=== PATIENT | male | born 1955 | race Caucasian/White ===

== ENCOUNTER 2020-11-08 04:51 | Observation (INO) | payer MEDICARE, OTHER ==
[2020-11-08 06:03] LABS: #Basophils 0.1 thou/uL (0.0-0.2); #Eosinphils 0.3 thou/uL (0.0-0.7); #Lymphocytes 1.8 thou/uL (1.20-3.40); #Monocytes 0.7 thou/uL (0.11-0.59); #Neutrophils 5.9 thou/uL (1.40-6.50); %Basophils 0.9 % (0.0-1.0); %Eosinophils 3.1 % (0.0-10.0); %Lymphocytes 20.5 % (21.0-51.0); %Monocytes 8.1 % (0.0-10.0); %Neutrophils 67.5 % (42.0-75.0); Hemoglobin 15.1 g/dL (14.0-18.0); Mean Corpuscular Hemoglobin 33.9 pg (27.0-31.0); Mean Platelet Volume 7.2 fL (7.4-10.4); Platelet Count 201 thou/uL (130-400); RBC Distribution Width 11.7 % (11.5-14.5); Red Blood Cell (RBC) Count 4.47 mill/uL (4.70-6.10); White Blood Cell (WBC) Count 8.8 thou/uL (4.8-10.8)
[2020-11-08 06:21] LABS: Anion Gap 12 mmol/L (10-20); BUN (Urea Nitrogen) 19 mg/dL (8.4-25.7); Calc. Creatinine Clearance 0 mL/min (70-130); Carbon Dioxide 27 mmol/L (23-31); Chloride 105 mmol/L (98-107); Glucose 99 mg/dL (80-115); Potassium 4.9 mmol/L (3.5-5.1); Sodium 139 mmol/L (136-145)
[2020-11-08] MEDS ORDERED: GoLYTELY 4,000 ml Bottle PO SCH (06:30)
[2020-11-08] MEDS ORDERED: Ondansetron ODT 4 MG TAB SL PRN (09:00)
[2020-11-08] MEDS ORDERED: Ondansetron PF 4 MG/2 ML Vial IVP PRN (09:00)
[2020-11-08] MEDS ORDERED: Acetaminophen 650 MG Suppository PR PRN (09:39)
[2020-11-08] MEDS ORDERED: Acetaminophen 325 MG TAB PO PRN (09:39)
[2020-11-08 10:06] LABS: Hemoglobin 14.7 g/dL (14.0-18.0)
[2020-11-08 10:21] LABS: Lactic Acid 0.8 mmol/L (0.5-2.2)
[2020-11-08] MEDS ORDERED: ePHEDrine 50 MG/ML VIAL ONE (10:30)
[2020-11-08] MEDS ORDERED: PROPOFOL 200 MG/20 ML VIAL ONE (10:30)
[2020-11-08] MEDS ORDERED: EPINEPHrine 1 MG/10 ML Abboject SYRINGE ONE (10:30)
--- NOTE | 2020-11-08 11:11 | CON ---
DATE OF CONSULTATION: 11/08/2020 REQUESTING PHYSICIAN: Maxx Bashir MD REASON FOR CONSULTATION: Postpolypectomy bleeding. HISTORY OF PRESENT ILLNESS: Ha Franks is a very pleasant 65-year-old man, who was seen by my colleague, Dr. Alcantara, two days ago for first routine screening colonoscopy. He had 21 sessile polyps visualized and they were all removed with snare polypectomy. These were scattered throughout the colon, 10 of them were removed with hot snare, and the other 11 were removed with cold snare. The patient did very well immediately following the procedure. He had a good day yesterday, but about 11 o'clock last night, he passed a large bowel movement, which was all bright red blood. He went back to sleep, but awoke again about 3:30 and passed another large bloody bowel movement, which was darker red. He never had any dizziness or lightheadedness or abdominal pain with this. There were no other symptoms, but he presented to the emergency department and was admitted. Admission hemoglobin is actually normal at 15.1. He has been hemodynamically stable. Bowel preparation was started. He has had several more bowel movements with this, having got down about half the prep so far. It is still very bloody. Again, he has no other complaints. REVIEW OF SYSTEMS: Full review of systems including constitutional, head, eyes, ears, nose, throat, GI, , cardiovascular, respiratory, musculoskeletal, and neurologic systems is negative except as noted in the HPI. PAST MEDICAL HISTORY: 1. Tobacco abuse, ongoing. 2. COPD. 3. Asthma. 4. History of colon polyps. ALLERGIES: HORSE SERUM. OUTPATIENT MEDICATIONS: Symbicort inhaler. SOCIAL HISTORY: He smokes about a pack of cigarettes per day. He lives at home with his . Alcohol use is social. No drug use. FAMILY HISTORY: Noncontributory. PHYSICAL EXAMINATION: VITAL SIGNS: Temperature 97.6, pulse 79, blood pressure 134/97, and 98% oxygen saturation on room air. GENERAL: A 65-year-old man, lying in bed comfortably, in no distress. SKIN: No jaundice. No rashes were palpable. EYES: No scleral icterus. Extraocular movements intact. ENT: Mucous membranes moist. No oral lesions. LYMPH: No submandibular or supraclavicular lymphadenopathy. Thyroid nontender to palpation. HEART: Regular rate and rhythm. LUNGS: Clear to auscultation bilaterally. No respiratory distress. ABDOMEN: Nondistended. Bowel sounds present. Soft and nontender to palpation. EXTREMITIES: No peripheral edema. VESSELS: Radial pulses 2+ bilaterally. NEURO: Cranial nerves 2 through 12 intact bilaterally. No focal deficits. LABORATORY STUDIES: WBC 8.8, hemoglobin 15.1, platelets 201, and MCV 103.0. Sodium 139, potassium 4.9, BUN only 19, creatinine 1.51, glucose 99, and calcium 9.0. ASSESSMENT AND PLAN: Postpolypectomy hemorrhage. I discussed with the patient that he is undoubtedly bleeding from one of the 10 polypectomy sites that required hot snare polypectomy. Reassuringly, he is hemodynamically stable with normal admission hemoglobin and has no other symptoms. I advised him to please try to finish the bowel preparation by noon today and we are going to plan for colonoscopy this afternoon to try to identify the bleeding site and apply endoscopic therapy if necessary. Depending on findings, if the bleeding is resolved and he is feeling well, he could potentially be discharged from the hospital this evening, but will see what the colonoscopy shows. Thank you for the consultation. Please call anytime with questions or concerns. Job ID: [id number]
[2020-11-08] MEDS: Dextrose 5 % And 0.9 % NaCl 1,000 ML IV SCH ×2 (11:24→19:15)
--- NOTE | 2020-11-08 11:33 | PDOC.HHP ---
Hospitalist HPI - History of Present Illness History of Present Illness: ADMISSION DATE: 11/08/2020 TIME OF ASSESSMENT: 0900 PRIMARY CARE PHYSICIAN: None CHIEF COMPLAINT: ADMISSION DATE: Bloody stools since yesterday evening HPI: This is a 65-year-old gentleman who came into the emergency department early hours this morning after having multiple bloody stools. He has had a total of 4 large bloody stools since 11 PM last night. The patient is status post a colonoscopy which was done on Thursday during which he had approximately 20 polyps removed. The procedure was done by Dr. Reyes and it was apparently his first screening colonoscopy. He did well once he went home and resumed diet w ithout any difficulty. Denies experiencing any nausea, vomiting, or abdominal pain. States that yesterday he was a lot more active around his home and relatively speaking he was less active than he normally is. He feels he may have "pulled something" that caused him to start bleeding. Again he denies any discomfort. Has not experienced any lightheadedness or dizziness. Denies any shortness of breath or chest pain. At present he is resting comfortably and is without any complaints. Of note patient denies having any issues with his bowels at baseline and has never experienced GI bleeding in the past. He endorses chronic NSAID use for musculoskeletal pain (he works in construction) and often alternates between Aspirin, Ibuprofen or Naproxen to treat his joint pain. ROS: All other review systems apart from what is mentioned above are negative. ED COURSE: In the emergency department he was noted to be normotensive with a blood pressure of 124/80 and his heart rate was between the 80s and 90s. He had laboratory studies done that showed a white cell count of 8.8, hemoglobin was 15.1, hematocrit 45.9 and platelets 101. BUN 19 and creatinine was elevated at 1.51. GFR 46. He was started on IV fluids in the emergency department. Case was discussed with Dr. Alcantara who plans to take the patient for repeat colonoscopy today. Patient was started on a bowel prep. PAST MEDICAL HISTORY: COPD PAST SURGICAL HISTORY: Status post colonoscopy with approximately 20 polyps removed. SOCIAL HISTORY: Patient smokes a pack and a half of cigarettes a day. Reports occasional alcohol consumption which ranges from 3-10 beers a week. Denies daily alcohol intake and states he sometimes goes several days without drinking at all and does not experience any alcohol withdrawal symptoms. No illicit drug use. FAMILY HISTORY: Noncontributory ALLERGIES: Horse serum CURRENT MEDICATIONS: 1. Symbicort 2. Occasional NSAIDs prn for joint pain (Aspirin, Naproxen and Ibuprofen) Hospitalist ROS - Medication Medications: Active Medications Generic Name Dose Route Start Last Admin Trade Name Oneilq PRN Reason Stop Dose Admin Dextrose/Sodium Chloride 1,000 mls @ 100 mls/hr 11/08/20 09:00 11/08/20 11:24 D5 0.9% Ns IV 11/08/20 19:00 1,000 mls .Q10H ANGEL Administration - Exam General Appearance: NAD, awake alert General - other findings: VS: Temp 97.6, HR 79, RR 16, O2 sat 90% on room air, BP 134/97. Eye: PERRL, anicteric sclera ENT: normocephalic atraumatic, no oropharyngeal lesions Neck: supple, no lymphadenopathy Heart: RRR, normal peripheral pulses Respiratory: CTAB, no wheezes, no rales, no ronchi, normal chest expansion Gastrointestinal: soft, non-tender, non-distended, normal bowel sounds Extremities: no edema Skin: normal turgor, no lesions, no rashes Neurological: cranial nerve grossly intact, normal sensation to touch, no weakness Musculoskeletal: normal tone, normal strength, no muscle wasting, generalized weakness Psychiatric: normal affect, normal behavior, A&O x 3, oriented to person Hospitalist Results - Labs Result Diagrams: 11/08/20 09:57 11/08/20 05:52 Lab results: WBC 8.8 thou/uL (4.8-10.8) 11/08/20 05:52 Hgb 14.7 g/dL (14.0-18.0) 11/08/20 09:57 Hct 44.3 % (42.0-52.0) 11/08/20 09:57 MCV 103.0 fL (78.0-98.0) H 11/08/20 05:52 Plt Count 201 thou/uL (130-400) 11/08/20 05:52 Neutrophils % 67.5 % (42.0-75.0) 11/08/20 05:52 Sodium 139 mmol/L (136-145) 11/08/20 05:52 Potassium 4.9 mmol/L (3.5-5.1) 11/08/20 05:52 Chloride 105 mmol/L (98-107) 11/08/20 05:52 Carbon Dioxide 27 mmol/L (23-31) 11/08/20 05:52 BUN 19 mg/dL (8.4-25.7) 11/08/20 05:52 Creatinine 1.51 mg/dL (0.7-1.3) H 11/08/20 05:52 Glucose 99 mg/dL (80-115) 11/08/20 05:52 Lactic Acid 0.8 mmol/L (0.5-2.2) 11/08/20 09:57 Calcium 9.0 mg/dL (7.8-10.44) 11/08/20 05:52 Hospitalist H&P A/P - Problem (1) GI bleed Code(s): K92.2 - GASTROINTESTINAL HEMORRHAGE, UNSPECIFIED Status: Acute (2) BECCA (acute kidney injury) Code(s): N17.9 - ACUTE KIDNEY FAILURE, UNSPECIFIED Status: Acute (3) Status post colonoscopy with polypectomy Status: Acute (4) COPD (chronic obstructive pulmonary disease) Status: Chronic - Plan Plan: Will repeat H/H Continue bowel prep for repeat colonoscopy Check Mg+ Continue IV fluids Monitor renal function Monitor BP Resume symbicort Advice given to minimize use of NSAIDs and try Tylenol instead GI prophylaxis: Protonix 40 mg IV daily DVT prophylaxis: Mechanical SCDs Educate: Tobacco cessation Case discussed with attending who agrees with plan as above.
[2020-11-08 12:58] LABS: SARS-CoV-2 MS2 Positive; SARS-CoV-2 N Gene Negative; SARS-CoV-2 S Gene Negative; SARS-CoV-2 by NAA Not Detected (NotDetected); SARS-CoV-2 orf1ab Negative
[2020-11-08 14:13] VITALS: BMI 31.9
--- NOTE | 2020-11-08 16:26 | OP ---
DATE OF PROCEDURE: 11/08/2020 DEPARTMENT STORE DOOR GREETER SURGEON: None. PROCEDURE PERFORMED: Colonoscopy with control of hemorrhage. INDICATIONS: A 65-year-old man presenting with post-polypectomy bleeding. He had a colonoscopy [address] Alcantara, with 21 sessile polyps removed, 10 of them were removed with hot snare, throughout the colon. MEDICATIONS: See Anesthesia record. FINDINGS: After discussion of the risks, benefits, and alternatives of the procedure, informed consent was obtained and witnessed. Pre-endoscopic cardiopulmonary examination was satisfactory. Time-out was performed before sedation was achieved. Sedation was achieved with Anesthesia assistance in the endoscopy unit. Digital rectal exam was performed, which was unremarkable. A Pentax adult colonoscope was inserted into the anus and passed forward to the cecum in the usual fashion. The cecal base was identified by the appendiceal orifice as well as the ileocecal valve. The terminal ileum was not intubated. The colonoscope was slowly withdrawn in a gradual circumferential manner with careful examination of the entire colonic mucosa. The quality of the prep was good, but there was a large amount of fresh bloody affluent fairly evenly distributed throughout the entire colon. There were several clots, but mostly this was liquid red blood, which made visualization easier with extensive irrigation and suctioning. I located multiple polypectomy ulcers scattered throughout the colon. There were clean-based polypectomy ulcerations in the cecum, transverse colon, descending colon, and sigmoid colon visualized. There was one particular polypectomy ulcer in the ascending colon, which was actively bleeding. I injected 4 mL of submucosal epinephrine in the area of the ulcer, which slowed down the hemorrhage to the point where better visualization was achieved. I then was able to place two hemoclips [id number] on top of the polypectomy ulcer, and following hemoclip placement, there was good hemostasis. I again inspected the other post-polypectomy ulcers, but none of them were bleeding, most of them were completely clean based with no stigmata of hemorrhage. A couple had small red spots, but no therapy was applied to these areas as they were not felt to be a source of bleeding. Retroflexion in the rectum demonstrated internal hemorrhoids. The colonoscope was completely withdrawn and the patient allowed to recover. The patient tolerated the procedure well. There were no immediate postprocedure complications. IMPRESSION: 1. Actively bleeding polypectomy ulcer in the ascending colon. Injected with 4 mL of submucosal epinephrine, and two hemoclips placed, with good hemostasis achieved. 2. Multiple other polypectomy ulcers as described above, with no stigmata of bleeding, no other endoscopic therapy applied. 3. Internal hemorrhoids. RECOMMENDATION: 1. Advance diet. 2. Okay to discharge from the hospital this evening from a GI perspective if the patient is feeling well. Note that he had only marginal decline of H and H this morning, and hemostasis has now been achieved. Dr. Alcantara will be following up with the patient regarding pathology on his colon polyps and recommendations for interval colonoscopy. GI will sign off. Please call back anytime with questions or concerns. Job ID: [id number]
[2020-11-08 16:59] LABS: Hemoglobin 13.6 g/dL (14.0-18.0)
[2020-11-08] MEDS: Sodium Chloride 0.9% 1,000 ML IV SCH (17:22)
[2020-11-08] MEDS: Mometasone 200 MCG/Formoterol 5 MCG 120 PUFF INHALER INH SCH (19:16)
[2020-11-09] MEDS: Sodium Chloride 0.9% 1,000 ML IV SCH (00:29)
[2020-11-09 06:36] LABS: #Eosinphils 0.2 thou/uL (0.0-0.7); #Lymphocytes 1.7 thou/uL (1.20-3.40); #Monocytes 0.6 thou/uL (0.11-0.59); #Neutrophils 4.8 thou/uL (1.40-6.50); %Basophils 0.6 % (0.0-1.0); %Eosinophils 3.1 % (0.0-10.0); %Lymphocytes 22.5 % (21.0-51.0); %Monocytes 8.3 % (0.0-10.0); %Neutrophils 65.5 % (42.0-75.0); Hemoglobin 12.4 g/dL (14.0-18.0); Mean Corpuscular HGB CONC 32.6 g/dL (32.0-36.0); Mean Corpuscular Hemoglobin 33.3 pg (27.0-31.0); Mean Platelet Volume 7.1 fL (7.4-10.4); Platelet Count 204 thou/uL (130-400); RBC Distribution Width 11.7 % (11.5-14.5); Red Blood Cell (RBC) Count 3.74 mill/uL (4.70-6.10); White Blood Cell (WBC) Count 7.4 thou/uL (4.8-10.8)
[2020-11-09 07:03] LABS: Anion Gap 10 mmol/L (10-20); BUN (Urea Nitrogen) 15 mg/dL (8.4-25.7); Calc. Creatinine Clearance 107 mL/min (70-130); Calcium 8.8 mg/dL (7.8-10.44); Carbon Dioxide 29 mmol/L (23-31); Chloride 106 mmol/L (98-107); Glucose 135 mg/dL (80-115); Sodium 141 mmol/L (136-145)
[2020-11-09 07:20] VITALS: BP 128/73; TEMP 97.7
[2020-11-09] MEDS: Mometasone 200 MCG/Formoterol 5 MCG 120 PUFF INHALER INH SCH (08:41)
[2020-11-09] MEDS ORDERED: Pantoprazole 40 MG VIAL IVP SCH (09:00)
--- NOTE | 2020-11-09 18:08 | PDOC.DS.DS ---
Provider - Provider Date of Admission: 11/08/20 06:50 Date of Discharge: 11/09/20 Admitting Provider: Maxx Bashir MD Consultations: Gastroentrology Primary Care Physician: OUT OF TOWN Course - Hospital Course Hospital Course: Is a 65-year-old male who had undergone a colonoscopy 2 days prior to his admission by Dr. Alcantara. At that time the patient had 21 polyps removed. Subsequently the patient did well for a day and then developed some bloody bowel movements. He presented to the hospital where he had a normal hemoglobin but had some evidence of acute kidney injury. He was given IV fluids and his hemoglobin was monitored carefully. GI was consulted. Patient subsequently underwent repeat colonoscopy revealing an area in the ascending colon where there was an ulcerated base to a polypectomy which was bleeding. This was injected with epinephrine and the bleeding appeared to stop. Patient continued to do well and his hemoglobin was relatively stable. His renal function had improved drastically with some IV fluids. He was felt to be stable for discharge. Resuscitation Status: 11/08/20 09:39 Resuscitation Status Routine Co-Sign Provider: Resuscitation Status: FULL: Full Resuscitation - Labs Lab Results: 11/09/20 06:17 11/09/20 06:17 Abnormal Lab Results - Last 48 hrs 11/08/20 05:52: RBC 4.47 L, MCV 103.0 H, MCH 33.9 H, MPV 7.2 L, Lymphocytes % 20.5 L, Monocytes # 0.7 H 11/08/20 05:52: Creatinine 1.51 H 11/08/20 16:51: Hgb 13.6 L, Hct 39.8 L 11/08/20 21:12: Hgb 13.0 L, Hct 39.9 L 11/09/20 06:17: RBC 3.74 L, Hgb 12.4 L, Hct 38.1 L, MCV 102.0 H, MCH 33.3 H, MPV 7.1 L, Monocytes # 0.6 H - Physical Exam Vitals: Vital Signs (12 hours) Temp Pulse Resp BP Pulse Ox 11/09/20 08:41 79 20 98 11/09/20 07:14 97.7 F 84 18 128/73 95 Weight Weight 222 lb 12.8 oz Physical Exam: The patient was seen and examined on the day of discharge. Plan - Discharge Medications Home Medications: Medication Instructions Recorded Confirmed Type Budesonide-Formoterol [Symbicort 1 puff INH BID 11/08/20 11/08/20 History 80-4.5] Ventolin HFA Inhaler 1 puff INH Q4HR PRN 11/08/20 11/08/20 History Allergies: Horse/Equine Containing Products Allergy (Verified 11/08/20 14:23) PER ER NOTES nut - unspecified Allergy (Verified 11/08/20 08:09) - Discharge Instructions Activity:: Activity as Tolerated Nourishment:: No Restrictions - Follow up Plan Referrals: [facility] PHYSICIAN,OUT OF [Primary Care Provider] - Mike Alcantara MD [Active] - Disposition: HOME Quality - Care Measures CORE MEASURES:: N/A
== END 2020-11-09 09:10 | disposition home or self-care (01) ==
LOC: ERS 04:51 → ONC 06:50
PROVIDERS: ADMIT Student in an Organized Health Care Education/Training Program; ATTEND Internal Medicine
PROC: 0W3P8ZZ Control Bleeding in Gastrointestinal Tract, Via Natural or Artificial Opening Endoscopic (ICD-10-PCS; principal; 2020-11-08)
DX: K91.840 Postprocedural hemorrhage of a digestive system organ or structure following a digestive system procedure (principal); K64.8 Other hemorrhoids; J44.9 Chronic obstructive pulmonary disease, unspecified; F17.210 Nicotine dependence, cigarettes, uncomplicated; N17.9 Acute kidney failure, unspecified; Z86.010 Personal history of colon polyps; Z79.899 Other long term (current) drug therapy; Z88.7 Allergy status to serum and vaccine; Z91.018 Allergy to other foods; Z20.822 Contact with and (suspected) exposure to COVID-19
CPT/HCPCS: 45382; 80048 ×2; 83605; 83735; 85014; 85018; 85025 ×2; 86850; 86900; 86901; 94640 ×2; 99285; U0003; 36415; 87635; 96374; C9113; G0378; J0171; J2704; J3490

== ENCOUNTER 2021-03-11 17:41 | Emergency (ER) | payer MEDICARE ==
[2021-03-11 18:13] LABS: #Basophils 0.1 thou/uL (0.0-0.2); #Eosinphils 0.2 thou/uL (0.0-0.7); #Lymphocytes 1.5 thou/uL (1.20-3.40); #Monocytes 0.7 thou/uL (0.11-0.59); #Neutrophils 7.2 thou/uL (1.40-6.50); %Basophils 0.5 % (0.0-1.0); %Eosinophils 1.9 % (0.0-10.0); %Lymphocytes 15.2 % (21.0-51.0); %Monocytes 7.4 % (0.0-10.0); Hemoglobin 15.1 g/dL (14.0-18.0); Mean Corpuscular HGB CONC 30.9 g/dL (32.0-36.0); Mean Corpuscular Hemoglobin 30.5 pg (27.0-31.0); Mean Corpuscular Volume 98.7 fL (78.0-98.0); Mean Platelet Volume 6.7 fL (7.4-10.4); Platelet Count 367 thou/uL (130-400); Red Blood Cell (RBC) Count 4.96 mill/uL (4.70-6.10); White Blood Cell (WBC) Count 9.6 thou/uL (4.8-10.8)
[2021-03-11 18:36] LABS: ALT (SGPT) 66 U/L (8-55); AST (SGOT) 36 U/L (5-34); Albumin 3.8 g/dL (3.4-4.8); Alkaline Phosphatase 105 U/L (40-110); Anion Gap 16 mmol/L (10-20); BUN (Urea Nitrogen) 11 mg/dL (8.4-25.7); Bilirubin, Total 0.5 mg/dL (0.2-1.2); Calc. Creatinine Clearance 0 mL/min (70-130); Calcium 10.5 mg/dL (7.8-10.44); Carbon Dioxide 24 mmol/L (23-31); Chloride 100 mmol/L (98-107); Globulin 3.7 g/dL (2.4-3.5); Glucose 88 mg/dL (80-115); Lipase 77 U/L (8-78); Magnesium 2.6 mg/dL (1.6-2.6); Potassium 3.9 mmol/L (3.5-5.1); Protein, Total 7.5 g/dL (5.8-8.1); Sodium 136 mmol/L (136-145)
[2021-03-11] MEDS ORDERED: Azithromycin 500 MG VIAL ONE (18:49)
[2021-03-11] MEDS ORDERED: cefTRIAXone\\ROCEPHIN 1 GM VIAL ONE (20:14)
== END 2021-03-11 20:46 | disposition home or self-care (01) ==
LOC: ERS 17:41
DX: J18.9 Pneumonia, unspecified organism (principal); J44.0 Chronic obstructive pulmonary disease with (acute) lower respiratory infection; F17.210 Nicotine dependence, cigarettes, uncomplicated
CPT/HCPCS: 36415; 71045; 71275; 80053; 83690; 83735; 83880; 84484; 85025; 85379; 93005; 96365; 96367; J0456; J0696

== ENCOUNTER 2023-08-05 07:42 | Outpatient (CLI) | payer MEDICARE | END 2023-08-05 07:43 | disposition home or self-care (01) | LOC: BICULT 07:42 | PROVIDERS: ATTEND Registered Nurse | DX: Z12.2 Encounter for screening for malignant neoplasm of respiratory organs (principal); Z00.00 Encounter for general adult medical examination without abnormal findings; Z13.6 Encounter for screening for cardiovascular disorders; F17.218 Nicotine dependence, cigarettes, with other nicotine-induced disorders | CPT/HCPCS: 71271; 76775 ==